=== PATIENT | male | born 1955 | race Caucasian/White ===

== ENCOUNTER 2018-07-19 09:37 | Outpatient (REF) | payer BC, SELFPAY ==
[2018-07-19 13:37] LABS: HCT 49.4 % (40.0-50.0); HGB 17.2 g/dL (13.5-17.5); Mean Corp. HGB Concentration 34.8 g/dL (32.0-36.0); Mean Corpuscular Hemoglobin 30.8 pg (27.0-33.0); Mean Corpuscular Volume 88.5 fL (80-95); Mean Platelet Volume 10.2 fL (8.0-11.0); Platelet Count 275 x1000/uL (130-400); RBC 5.58 m/cumm (4.50-6.00); RBC Distribution Width 15.6 % (11.8-14.1); White Blood Cell Count 8.94 k/cumm (4.4-10.8)
[2018-07-19 13:45] LABS: ALT 21 U/L (12-78); AST 15 U/L (15-37); Albumin 4.2 g/dL (3.4-5.0); Alkaline Phosphatase 60 U/L (46-116); BUN 21 mg/dL (7-18); Bilirubin, Total 0.7 mg/dL (0.2-1.0); CREATININE 0.88 mg/dL (0.70-1.30); Calcium 9.2 mg/dL (8.5-10.1); Chloride 102 mmol/L (98-107); Cholesterol 126 mg/dL (50-200); Glucose 122 mg/dL (70-100); HDL Cholesterol 25 mg/dL (40-60); LDL CHOLESTEROL 80 mg/dL (<100); Potassium 4.7 mmol/L (3.5-5.1); Sodium 139 mmol/L (136-145); Total Protein 7.4 g/dL (6.4-8.2); Triglyceride 130 mg/dL (30-150)
[2018-07-23 09:22] LABS: PSA, Screening 24.1 ng/ml (0-4.5)
== END 2018-07-19 09:57 ==
LOC: NCHCN 09:37
PROVIDERS: PCP Family Medicine; Visit Provider Family Medicine
DX: E78.5 Hyperlipidemia, unspecified (principal); I10 Essential (primary) hypertension; Z00.00 Encounter for general adult medical examination without abnormal findings; Z12.5 Encounter for screening for malignant neoplasm of prostate
CPT/HCPCS: 80053; 80061; 83721; 84153; 85027

== ENCOUNTER 2018-09-07 11:35 | Outpatient (CLI) | payer BC, SELFPAY ==
[2018-09-10 10:02] LABS: PSA, Diagnostic 26.3 ng/ml (0-4.5)
== END 2018-09-07 11:55 ==
PROVIDERS: PCP Family Medicine; Visit Provider Urology
DX: R97.20 Elevated prostate specific antigen [PSA] (principal)
CPT/HCPCS: 36415; 84153

== ENCOUNTER 2018-09-24 02:19 | Outpatient (CLI) | payer BC, SELFPAY ==
--- NOTE | 2018-09-24 12:42 | DI.US_ITS ---
SYMPTOM/DIAGNOSIS: ELEVATED PSA, R97.20, ? CA ULTRASOUND GUIDED PROSTATE BIOPSY: Sonography was utilized by Dr. Thurston during the performance of a trans rectal ultrasound guided prostate biopsy 12 biopsy samples were obtained. Please refer to the procedure report for complete details.
--- NOTE | 2018-09-24 13:10 | PROST_PTH ---
PATIENT: Vinicius Sy LOC: [facility] U#:[id number] AGE/SX: 62/M ROOM: RE09/24/[address]: Tico Thurston MD : [id number] BED: DIS: 09/24/2018 SPEC #: [id number] RECD: 09/24/18 17:56 STATUS: [facility] #: [id number] JOSE: 09/24/18 13:[address]: Tico Thurston DEPT: Surgical Specimen RECD BY: Izabela Franco ENTERED: 09/24/18 17:58 SP TYPE: PROST OTHR DR: Coreen Cardoso Tissues: 1 - PROSTATE NEEDLE BIOPSY 2 - PROSTATE NEEDLE BIOPSY 3 - PROSTATE NEEDLE BIOPSY 4 - PROSTATE NEEDLE BIOPSY 5 - PROSTATE NEEDLE BIOPSY 6 - PROSTATE NEEDLE BIOPSY 7 - PROSTATE NEEDLE BIOPSY 8 - PROSTATE NEEDLE BIOPSY 9 - PROSTATE NEEDLE BIOPSY 10 - PROSTATE NEEDLE BIOPSY 11 - PROSTATE NEEDLE BIOPSY 12 - PROSTATE NEEDLE BIOPSY Procedures: GROSS AND MICRO LEVEL 4 Comments: [id number]
--- NOTE | 2018-09-24 16:52 | ROE_ITS ---
DATE OF PROCEDURE: September 24, 2018 PREPROCEDURE DIAGNOSIS: Elevated PSA. POSTPROCEDURE DIAGNOSIS: Elevated PSA. PROCEDURE: Ultrasound-guided biopsy of the prostate. SURGEON: Tico Thurston M.D. ANESTHESIA: Local. COMPLICATIONS: None. HISTORY: This is a 62-year-old gentleman who was recently discovered as having an elevated PSA of 24 ng/mL. We rechecked the PSA and confirmed that it was elevated. On digital exam we did not find an y discrete prostate nodules. He presents for ultrasound-guided biopsy for tissue diagnosis. OPERATIVE REPORT: The patient was brought to the Operating Room on 09/24/18. He had been given a pre procedure mechanical and antibiotic bowel prep. He was placed in the left lateral position. Transrectal imaging of the prostate was performed. The prostate was imaged in both transverse and lo ngitudinal planes. The prostate volume was calculated at 31 cc. No specific hypoechoic areas were noticed. There was, however, some loss of architecture between the normal peripheral and transition zones. A periprostatic nerve block was performed using 1% Xylocaine without epinephrine. We then took a tot al of 12 laterally-directed prostate biopsies. Each biopsy was labeled and sent to Pathology for per manent section. The patient tolerated this procedure well with no complications. He will follow up in one week to review the biopsy results. cc: Coreen Cardoso M.D.
== END 2018-09-24 02:39 ==
PROVIDERS: PCP Family Medicine; Visit Provider Urology
DX: C61 Malignant neoplasm of prostate (principal); N41.1 Chronic prostatitis; R97.20 Elevated prostate specific antigen [PSA]
CPT/HCPCS: 55700; 76942; 88305

== ENCOUNTER 2018-10-26 01:18 | Outpatient (CLI) | payer BC, SELFPAY ==
--- NOTE | 2018-10-26 08:01 | DI.NM_ITS ---
SYMPTOMS/DIAGNOSIS: PROSTATE CA, C61, ? METS WHOLE BODY BONE SCAN: 25.2 millicuries of Technetium 99 M MDP were administered IV. Whole body images and oblique views of the pelvis were performed. There is mildly increased activity at the L 2 level. This corresponds to an area of degeneration and sclerosis seen on the CT from the previous day. There is mildly increased activity in both wrists and in the right ankle likely secondary to degenerative changes. IMPRESSION: No evidence of metastatic disease.
--- NOTE | 2018-10-26 08:01 | DI.CT_ITS ---
SYMPTOMS/DIAGNOSIS: PROSTATE CA, C61, ? METS CT OF THE ABDOMEN AND PELVIS: There are no prior comparison exams. Images were performed from the lung bases through the ischial tuberosities after IV and oral contrast. The lung bases are clear. The heart size is normal. Coronary artery calcifications are seen. The abdominal aorta shows calcification and mild dilatation inferiorly to 3 cm. There is also mild dilatation of both common iliac arteries. There is a 4 cm cyst at the posterior right lobe of the liver and a smaller cyst seen posteriorly and superiorly near the diaphragm. No suspicious liver lesions are identified. The gallbladder, spleen, pancreas and adrenals are unremarkable. A cyst is seen at the mid left kidney. There is no hydronephrosis. The prostate appears mildly enlarged. No focal mass is visible. The bladder is unremarkable. There are fatty containing bilateral inguinal hernias, left greater than right. The bowel is unremarkable. The appendix appears normal. No free air, free fluid or adenopathy is seen. There are degenerative disc changes greatest at L 1 - 2. There is an area of endplate sclerosis but no definite suspicious lytic or blastic lesion. IMPRESSION: No evidence of metastatic disease. Incidental findings as described above.
[2018-10-26] MEDS: Omnipaque 350 MG/ML 50 ML BTL IJ (08:56)
[2018-10-26] MEDS: Breeza Beverage 473 ML BTL PO ×2 (08:57→08:58)
[2018-10-26 09:00] LABS: CREATININE 0.94 mg/dL (0.70-1.30)
[2018-10-26] MEDS: Omnipaque 350 MG/ML 100 ML BTL IJ (10:59)
== END 2018-10-26 01:38 ==
PROVIDERS: PCP Family Medicine; Visit Provider Urology
DX: C61 Malignant neoplasm of prostate (principal); Z12.89 Encounter for screening for malignant neoplasm of other sites; K76.89 Other specified diseases of liver; K40.90 Unilateral inguinal hernia, without obstruction or gangrene, not specified as recurrent
CPT/HCPCS: 36415; 78306; 74177; 82565; J3490; Q9967

== ENCOUNTER 2019-05-24 09:27 | Outpatient (CLI) | payer BC, SELFPAY ==
[2019-05-24 10:07] LABS: Abs Immature Grans 0.01 k/cumm (0.0-0.09); Absolute Basophil Count 0.02 k/cumm (0.0-0.2); Absolute Eosinophil Count 0.12 k/cumm (0.0-0.7); Absolute Lymphocyte Count 0.75 k/cumm (1.2-3.4); Absolute Monocyte Count 0.52 k/cumm (0.11-0.7); Basophils % 0.4; Eosinophils % 2.4; HCT 42.5 % (40.0-50.0); HGB 14.3 g/dL (13.5-17.5); Immature Grans % 0.2; Lymphocytes % 14.9; Mean Corp. HGB Concentration 33.6 g/dL (32.0-36.0); Mean Corpuscular Hemoglobin 30.7 pg (27.0-33.0); Mean Corpuscular Volume 91.2 fL (80-95); Mean Platelet Volume 9.5 fL (8.0-11.0); Monocytes % 10.4; Neutrophils % 71.7; Platelet Count 244 x1000/uL (130-400); RBC 4.66 m/cumm (4.50-6.00); RBC Distribution Width 14.9 % (11.8-14.1); White Blood Cell Count 5.02 k/cumm (4.4-10.8)
[2019-05-24 10:14] LABS: ALT 14 U/L (16-63); AST 11 U/L (15-37); Albumin 3.9 g/dL (3.4-5.0); Alkaline Phosphatase 67 U/L (46-116); Anion Gap 8.5 mmol/L (3-11); BUN 18 mg/dL (7-18); Bilirubin, Total 0.3 mg/dL (0.2-1.0); CO2 28.5 mmol/L (21.0-32.0); CREATININE 0.91 mg/dL (0.70-1.30); Calcium 9.1 mg/dL (8.5-10.1); Chloride 103 mmol/L (98-107); Glucose 123 mg/dL (70-100); Potassium 4.2 mmol/L (3.5-5.1); Sodium 140 mmol/L (136-145); Total Protein 7.1 g/dL (6.4-8.2)
[2019-05-26 16:05] LABS: Testosterone, Total <7.0 ng/dL (240-950)
[2019-05-27 10:43] LABS: PSA, Diagnostic <0.1 ng/ml (0-4.5)
== END 2019-05-24 09:47 ==
PROVIDERS: PCP Family Medicine; Visit Provider Radiology Radiation Oncology
DX: C61 Malignant neoplasm of prostate (principal)
CPT/HCPCS: 36415; 80053; 84403; 84153; 85025

== ENCOUNTER 2019-07-07 18:44 | Emergency (ER) | payer BC, SELFPAY ==
[2019-07-07] VITALS (15 sets, daily range): BP systolic 123–158; BP diastolic 66–120; PULSE 95–122; RESP 12–29; TEMP 36.6; O2SAT 95–100
--- NOTE | 2019-07-07 18:54 | W.ED.GENAD ---
Discharge Plan Disposition Patient Disposition: HOME Condition: Stable Discharge Details Chief Complaint: GI Bleed Clinical Impression: Proctocolitis Primary Care Provider: Coreen Cardoso ED Provider: Isael Andrews Home Meds and New Rx's Prescriptions: New prednisone 20 mg tablet 60 mg PO DAILY 5 Days Qty: 15 RF: 0 Continued sildenafil [Viagra] 100 mg tablet 100 mg PO DAILY PRN (Reason: sexual activity) Qty: 10 RF: 0 atorvastatin 40 MG tablet 40 mg PO DAILY RF: 0 omeprazole 20 MG capsule,delayed release(DR/EC) 20 mg PO DAILY RF: 0 aspirin 81 MG tablet,chewable 81 mg PO DAILY RF: 0 epinephrine [EpiPen 2-Roberth] 0.3 MG/0.3 ML auto-injector 0.3 mg IM ONCE RF: 0 albuterol sulfate [ProAir HFA] 8.5 GM HFA aerosol inhaler 1 - 2 puff Inhalation Q4H PRN RF: 0 (DME) inhalational spacing device [Aerochamber Plus Flow-Vu] 1 EACH spacer 1 ea Miscellaneous PRN RF: 0 calcium carbonate-vitamin D3 [Calcium 600 + D(3)] 600 mg(1,500mg) -200 unit Tablet 1 tab PO BID RF: 0 aspirin [Aspir-81] 81 mg Tablet,Delayed Release (Dr/Ec) 81 mg PO DAILY RF: 0 acetaminophen [Tylenol Arthritis Pain] 650 mg Tablet Extended Release 650 mg PO Q12H PRNRF: 0 diclofenac potassium 50 mg Tablet 50 mg PO DAILY RF: 0 hydrochlorothiazide 12.5 mg Tablet 12.5 mg PO DAILY RF: 0 Discharge Instructions Additional Instructions: your lab work was normal. Your cat scan showed evidence of inflammation of the prostate and colon likely from the radiation therapy follow up with your primary care provider within a week if you have increased bleeding, pain, fevers or chest pain/shortness of breath return to the emergency department Medical Decision Making 63 yo male with hx of prostate cancer s/p radiation completed in April who comes in with cc of bright red blood per rectum starting 2 hours ago and has no prior history of such. Is noted to have blood on rectal exam. Denies any abdominal pain, chest aba, fevers, vomit. Given his symptoms will obtain lab work and CTA and monitor. Has no abdominal tenderness on exam labs unremarkable and CT shows proctocolitis. He has no rebleeding here and he declins admission for observation which I feel is reasonable as this can usually be managed as an outpatient. ADvised f/u with pcp and return precautions given Differential Diagnosis Differential Diagnosis: diverticulitis, avm, cancer Imaging Data Radiologic Study: Attestation: I personally reviewed and interpreted this imaging study as follows: Imaging: CT Scan Radiologist's impression: 1. Mucosal thickening distal sigmoid and rectum suggesting proctocolitis. 2. Placement of prostatic brachytherapy beads since the comparison study. Lab Data Lab results reviewed: Yes I reviewed the patient's lab results. ECG Data Attestation: I personally reviewed and interpreted this ECG (s) as follows: Prior ECG tracings: not available for review Interpretation: sinus rhythm, rate of 114, pr 164, no acute st t wave ischemic findings HPI General Mode of arrival: ambulatory. Date/Time Provider Initiated Documentation: 07/07/19 18:45. Limitations to Documentation: no limitations. Information obtained by: patient. History of Present Illness 63 year old M presents to the emergency department with the chief complaint of bright red blood per rectum, described as moderate, and it has been constant. No relieving factors improve symptom(s), No exacerbating factors reported . Patient notes no other symptoms.. Related Data Home Medications Medication Instructions Recorded Confirmed albuterol sulfate [ProAir HFA] 1 - 2 puff INHALATION Q4H PRN 05/08/17 07/07/19 inhaler aspirin 81 mg PO DAILY tab-cap 05/08/17 07/07/19 atorvastatin 40 mg PO DAILY tab-cap 05/08/17 07/07/19 epinephrine [EpiPen 2-Roberth] 0.3 mg IM ONCE 05/08/17 07/07/19 inhalational spacing device 05/08/17 [Aerochamber Plus Flow-Vu] omeprazole 20 mg PO DAILY tab-cap 05/08/17 07/07/19 sildenafil 100 mg tablet 100 mg PO DAILY PRN #10 tab 10/26/18 07/07/19 acetaminophen [Tylenol Arthritis 650 mg PO Q12H PRN 07/07/19 07/07/19 Pain] aspirin [Aspir-81] 81 mg PO DAILY 07/07/19 07/07/19 calcium carbonate-vitamin D3 1 tab PO BID 07/07/19 07/07/19 [Calcium 600 + D(3)] diclofenac potassium 50 mg PO DAILY 07/07/19 07/07/19 hydrochlorothiazide 12.5 mg PO DAILY 07/07/19 07/07/19 prednisone 60 mg PO DAILY 5 Days #15 tab 07/07/19 Previous Rx's Medication Instructions Recorded sildenafil 100 mg tablet 100 mg PO DAILY PRN #10 tab 10/26/18 prednisone 60 mg PO DAILY 5 Days #15 tab 07/07/19 Allergies Allergy/AdvReac Type Severity Reaction Status Date / Time bee venom protein (honey bee) Allergy Severe Anaphylaxsi Unverified 09/07/18 10:52 s Penicillins Allergy Unverified 07/07/19 18:53 General Stated Complaint: GI Bleed VESTA: 2 Review of Systems All systems reviewed & are unremarkable except as noted in HPI and below Constitutional Constitutional: Denies chills, Denies fever(s) and Denies weakness ENT Ears, Nose, Mouth, and Throat: Denies change in voice Cardiovascular Cardiovascular: Denies chest pain and Denies dyspnea Respiratory Respiratory: Denies dyspnea Gastrointestinal Gastrointestinal: Denies abdominal pain, Denies nausea and Denies vomiting Musculoskeletal Musculoskeletal: Denies joint swelling Neurologic Neurologic: Denies weakness [facility] Medical History (Updated 09/03/18 @ 15:08 by Ange Villalobos) Alcohol abuse Dyspepsia Erectile dysfunction Exertional shortness of breath HTN (hypertension) Hyperlipidemia Joint pain Plantar wart, right foot Sensorineural hearing loss Tobacco abuse Surgical History (Updated 06/22/17 @ 09:37 by Thania Watson) Colonoscopy - [facility] (06/09/17) Social History Smoking/Tobacco Use Status: Current every day Tobacco Type: pipe and cigars Alcohol Intake: current Alcohol Intake frequency: 3 or more drinks per day Alcohol type: hard liquor Drug use: Never Substance use type: does not use Do you feel safe at home: Yes Do you feel safe in your relationship?: Yes Exam Const General: no acute distress Orientation: alert HENMT Head: normal to inspection Ears: external ears normal General nose exam: external nose normal Mouth: moist mucous membranes Eyes General: appearance normal, both eyes and all related structures Neck Neck: normal visual inspection Resp Effort & Inspection: normal respiratory effort and able to speak in complete sentences Cardio Rate: regular rate GI Palpation: soft Skin General skin exam: no rashes or lesions noted Neuro General: alert and oriented x3 Extrem General: normal to inspection Psych Mental Status: mental status grossly normal Course Vital Signs Vital signs: Vital Signs Temperature 36.6 C 07/07/19 18:49 Pulse 122 H 07/07/19 18:49 Respiratory Rate 25 H 07/07/19 18:49 Blood Pressure 158/87 H 07/07/19 18:49 Pulse Oximetry 97 07/07/19 18:49 Temperature 36.6 C 07/07/19 18:49 Temperature Source Skin 07/07/19 18:49 Pulse 122 H 07/07/19 18:49 Respiratory Rate 25 H 07/07/19 18:49 Blood Pressure 158/87 H 07/07/19 18:49 Blood Pressure Position Supine 07/07/19 18:49 Pulse Oximetry 97 07/07/19 18:49 Oxygen Delivery Method Room Air 07/07/19 18:49 Oxygen Flow Rate 0 07/07/19 18:49
[2019-07-07 19:02] LABS: Abs Immature Grans 0.03 k/cumm (0.0-0.09); Absolute Basophil Count 0.03 k/cumm (0.0-0.2); Absolute Eosinophil Count 0.11 k/cumm (0.0-0.7); Absolute Lymphocyte Count 1.25 k/cumm (1.2-3.4); Absolute Monocyte Count 0.71 k/cumm (0.11-0.7); Basophils % 0.3; HCT 43.9 % (40.0-50.0); HGB 15.1 g/dL (13.5-17.5); Immature Grans % 0.3; Lymphocytes % 11.5; Mean Corp. HGB Concentration 34.4 g/dL (32.0-36.0); Mean Corpuscular Hemoglobin 30.7 pg (27.0-33.0); Mean Corpuscular Volume 89.2 fL (80-95); Mean Platelet Volume 9.3 fL (8.0-11.0); Monocytes % 6.6; Neutrophils % 80.3; Platelet Count 341 x1000/uL (130-400); RBC 4.92 m/cumm (4.50-6.00); RBC Distribution Width 15.2 % (11.8-14.1); White Blood Cell Count 10.83 k/cumm (4.4-10.8)
[2019-07-07] MEDS: Omnipaque 350 MG/ML 100 ML BTL IJ (19:08)
--- NOTE | 2019-07-07 19:13 | DI.CT_ITS ---
EXAM: CT ABDOMEN AND PELVIS CTA CLINICAL HISTORY: lower GI bleed TECHNIQUE: 100 cc Omnipaque 350 during the arterial phase. Axial CT angiography was performed with multislice acquisition and multiplanar and/or 3D reconstructions. COMPARISON: CT ABDOMEN AND PELVIS W from 10/26/2018 FINDINGS: There is no evidence of aortic dissection. There is dilatation of the abdominal aorta up to 3 cm. The proximal iliac arteries also appear dilated, unchanged. The celiac axis, SMA and renal arteries are patent. The AZIZA also appears patent. No active contrast extravasation is seen. There is some wall thi ckening in the rectum and distal sigmoid. This could represent inflammatory changes or could be secon rebecca to radiation therapy. There is no evidence of free air, free fluid or obstruction. The lung base s are clear. A cyst is again noted in the liver. The gallbladder, pancreas, spleen, and adrenals are unremarkable. A left renal cyst is again noted. There is no evidence of hydronephrosis. The bladder i s nearly empty. There is a question of thickening of the bladder wall. There is a small fat-containin g left inguinal hernia. IMPRESSION: Wall thickening of the distal sigmoid and rectum could indicate proctitis versus secondary to radia tion therapy.
[2019-07-07 19:15] LABS: Prothrombin Time 10.3 sec (9.3-11.0)
[2019-07-07 19:17] LABS: ALT 18 U/L (16-63); AST 13 U/L (15-37); Albumin 3.9 g/dL (3.4-5.0); Alkaline Phosphatase 83 U/L (46-116); Anion Gap 11.1 mmol/L (3-11); BUN 24 mg/dL (7-18); Bilirubin, Total 0.2 mg/dL (0.2-1.0); CO2 26.9 mmol/L (21.0-32.0); CREATININE 0.98 mg/dL (0.70-1.30); Calcium 9.2 mg/dL (8.5-10.1); Chloride 105 mmol/L (98-107); Glucose 151 mg/dL (74-106); Lipase 181 U/L (73-393); Potassium 3.8 mmol/L (3.5-5.1); Sodium 143 mmol/L (136-145); Total Protein 7.5 g/dL (6.4-8.2)
--- NOTE | 2019-07-07 19:55 | DI.VRAD_ITS ---
Addendum created by Leonides Vyas MD on 07/07/2019 8:40:08 PM EST This is a duplicate study. The complete CTA study is dictated as a separate report with the complete images. Initial report created on 07/07/2019 7:55:30 PM EST PROCEDURE INFORMATION: Exam: CT Angiography Abdomen and Pelvis With Contrast Exam date and time: 07/07/2019 7:08 PM Age: 63 years old Clinical history: Patient HX: Rectal bleeding this am. HX prostate CA TECHNIQUE: Imaging protocol: Computed tomographic angiography of the abdomen and pelvis with intravenous contrast material. 3D rendering: MIP reconstructed images were created and reviewed. Radiation optimization: All CT scans at this facility use at least one of these dose optimization techniques: automated exposure control; mA and/or kV adjustment per patient size (includes targeted exams where dose is matched to clinical indication); or iterative reconstruction. Contrast material: OMNI 350; Contrast volume: 100 ml; Contrast route: IV; COMPARISON: CT ABDOMEN PELVIS W 10/26/2018 10:40 AM FINDINGS: Aorta: Moderate diffuse atherosclerosis with ectatic infrarenal abdominal aorta measuring up to 3 cm in diameter and diffusely ectatic iliac arteries bilaterally. Celiac trunk and mesenteric arteries: No occlusion or significant stenosis. Renal arteries: No occlusion or significant stenosis. Right iliac arteries: No occlusion or significant stenosis. Left iliac arteries: No occlusion or significant stenosis. Liver: No change 4 cm cyst posterior segment right lobe of the liver and a second smaller 11 mm lesion just above this which is too small to characterize. Small hepatic granuloma. Gallbladder and bile ducts: Nondistended. No evidence of mineralized stones. Pancreas: Unremarkable. No mass. No ductal dilation. Spleen: Unremarkable. No splenomegaly. Adrenals: Unremarkable. No mass. Kidneys and ureters: 17 mm left interpolar renal cyst unchanged. Stomach and bowel: There is rectal and distal sigmoid mucosal thickening and fat stranding is suggesting proctocolitis possibly secondary to radiation. Appendix: Normal appendix. Intraperitoneal space: Unremarkable. No free air. No significant fluid collection. Lymph nodes: Unremarkable. No enlarged lymph nodes. Bladder: Unremarkable. No mass. Reproductive: Prostatic brachytherapy beads. Bones/joints: No acute fracture. No dislocation. Soft tissues: Small left greater than right bilateral fat containing inguinal hernias. IMPRESSION: 1. Mucosal thickening distal sigmoid and rectum suggesting proctocolitis. 2. Placement of prostatic brachytherapy beads since the comparison study. Axial images only were reviewed for this interpretation. Sagittal and coronal images have been requested and will be reviewed and reported upon if they can be obtained. Dictated and Authenticated by: Leonides Vyas MD. Ordering:NIGEL Kirkland MD
[2019-07-07] MEDS: predniSONE 20 MG TAB 60 MG PO (20:22)
== END 2019-07-07 20:15 | disposition home or self-care (01) ==
PROVIDERS: Emergency Provider Emergency Medicine; PCP Family Medicine
DX: K52.0 Gastroenteritis and colitis due to radiation (principal); C61 Malignant neoplasm of prostate; Z92.3 Personal history of irradiation; I10 Essential (primary) hypertension
CPT/HCPCS: 36415; 80053; 83690; 86850; 86900; 86901; 93005; 99285; 74174; 83735; 85025; 85610; 85730; 93010; 99284; J3490; J7512

== ENCOUNTER 2020-03-05 01:00 | Outpatient (CLI) | payer MEDICARE, SELFPAY ==
[2020-03-05 09:56] LABS: Abs Immature Grans 0.02 k/cumm (0.0-0.09); Absolute Basophil Count 0.02 k/cumm (0.0-0.2); Absolute Lymphocyte Count 1.06 k/cumm (1.2-3.4); Absolute Monocyte Count 0.64 k/cumm (0.11-0.7); Absolute Neutrophil Count 3.93 k/cumm (1.2-6.7); Basophils % 0.3; Eosinophils % 1.7; HCT 46.8 % (40.0-50.0); HGB 15.6 g/dL (13.5-17.5); Immature Grans % 0.3 %; Lymphocytes % 18.4; Mean Corp. HGB Concentration 33.3 g/dL (32.0-36.0); Mean Corpuscular Hemoglobin 30.2 pg (27.0-33.0); Mean Corpuscular Volume 90.7 fL (80-95); Monocytes % 11.1; Neutrophils % 68.2; Platelet Count 286 x1000/uL (130-400); RBC 5.16 m/cumm (4.50-6.00); RBC Distribution Width 16.2 % (11.8-14.1); White Blood Cell Count 5.77 k/cumm (4.4-10.8)
[2020-03-05 10:43] LABS: ALT 18 U/L (16-63); AST 12 U/L (15-37); Albumin 3.8 g/dL (3.4-5.0); Alkaline Phosphatase 68 U/L (46-116); Anion Gap 6.9 mmol/L (3-11); BUN 16 mg/dL (7-18); Bilirubin, Total 0.5 mg/dL (0.2-1.0); CO2 31.1 mmol/L (21.0-32.0); Calcium 9.1 mg/dL (8.5-10.1); Chloride 103 mmol/L (98-107); Glucose 109 mg/dL (74-106); Potassium 4.4 mmol/L (3.5-5.1); Sodium 141 mmol/L (136-145); Total Protein 6.8 g/dL (6.4-8.2)
[2020-03-06 12:49] LABS: PSA, Ultrasensitive 0.03 ng/mL (<= 4.5)
[2020-03-09 16:35] LABS: Testosterone, Total 317 ng/dL (240-950)
== END 2020-03-05 01:20 ==
PROVIDERS: PCP Family Medicine; Visit Provider Radiology Radiation Oncology
DX: C61 Malignant neoplasm of prostate (principal)
CPT/HCPCS: 36415; 80053; 84153; 84403; 85025

== ENCOUNTER 2020-07-16 03:15 | Outpatient (CLI) | payer MEDICARE, SELFPAY ==
[2020-07-16 09:49] LABS: Abs Immature Grans 0.03 10^3/uL (0.0-0.06); Absolute Basophil Count 0.04 10^3/uL (0.0-0.2); Absolute Eosinophil Count 0.11 10^3/uL (0.0-0.7); Absolute Monocyte Count 0.68 10^3/uL (0.1-0.8); Basophils % 0.5; Eosinophils % 1.3; HCT 53.3 % (40.0-50.0); HGB 17.7 g/dL (13.5-17.5); Immature Grans % 0.4; Lymphocytes % 15.6; MCH 30.1 pg (27.0-33.0); MCHC 33.2 % (32.0-36.0); MCV 90.6 fL (80-95); MPV 9.4 fL (8.0-11.0); Monocytes % 8.1; Neutrophils % 74.1; Nucleated RBC 0 %; Platelet Count 285 10^3/uL (130-400); RBC 5.88 10^6/uL (4.36-5.78); RDW 14.8 % (11.8-14.1); RDW-SD 49.3 fL; WBC 8.36 10^3/uL (4.4-10.8)
[2020-07-16 10:01] LABS: ALT 20 U/L (16-63); AST 14 U/L (15-37); Albumin 4.1 g/dL (3.4-5.0); Alkaline Phosphatase 77 U/L (46-116); Anion Gap 6.6 mmol/L (3-11); BUN 21 mg/dL (7-18); Bilirubin, Total 0.4 mg/dL (0.2-1.0); CO2 30.4 mmol/L (21.0-32.0); CREATININE 1.11 mg/dL (0.70-1.30); Calcium 9.2 mg/dL (8.5-10.1); Chloride 99 mmol/L (98-107); Glucose 132 mg/dL (74-106); Potassium 4.1 mmol/L (3.5-5.1); Sodium 136 mmol/L (136-145); Total Protein 7.9 g/dL (6.4-8.2)
[2020-07-17 15:29] LABS: PSA, Ultrasensitive 0.07 ng/mL (<= 4.5)
[2020-07-19 15:53] LABS: Testosterone, Total 472 ng/dL (240-950)
== END 2020-07-16 03:35 ==
PROVIDERS: PCP Family Medicine; Visit Provider Nurse Practitioner Family
DX: C61 Malignant neoplasm of prostate (principal)
CPT/HCPCS: 36415; 80053; 84153; 84403; 85025

== ENCOUNTER 2021-02-18 09:26 | Outpatient (REF) | payer MEDICARE, SELFPAY ==
[2021-02-18 13:15] LABS: MCH 30.2 pg (27.0-33.0); MCHC 33.3 % (32.0-36.0); MCV 90.7 fL (80-95); MPV 10.1 fL (8.0-11.0); Platelet Count 255 10^3/uL (130-400); RBC 5.62 10^6/uL (4.36-5.78); RDW 14.9 % (11.8-14.1); RDW-SD 49.9 fL; WBC 7.47 10^3/uL (4.4-10.8)
[2021-02-18 14:09] LABS: ALT 20 U/L (16-63); AST 10 U/L (15-37); Albumin 3.7 g/dL (3.4-5.0); Alkaline Phosphatase 69 U/L (46-116); Anion Gap 9.3 mmol/L (3-11); BUN 19 mg/dL (7-18); Bilirubin, Total 0.5 mg/dL (0.2-1.0); CO2 28.7 mmol/L (21.0-32.0); CREATININE 0.9 mg/dL (0.70-1.30); Calculated LDL 63 mg/dL (<100); Chloride 104 mmol/L (98-107); Cholesterol 122 mg/dL (<200); Glucose 121 mg/dL (74-106); HDL Cholesterol 22 mg/dL (40-60); Potassium 4.1 mmol/L (3.5-5.1); Sodium 142 mmol/L (136-145); Total Protein 6.8 g/dL (6.4-8.2); Triglyceride 187 mg/dL (<150)
[2021-02-18 21:59] LABS: PSA, Diagnostic <0.1 ng/mL (0.0-4.5)
== END 2021-02-18 09:27 | disposition home or self-care (01) ==
LOC: NCHCN 09:26
PROVIDERS: PCP Family Medicine; Visit Provider Family Medicine
DX: Z00.00 Encounter for general adult medical examination without abnormal findings; C61 Malignant neoplasm of prostate; E78.5 Hyperlipidemia, unspecified; I10 Essential (primary) hypertension
CPT/HCPCS: 80053; 80061; 85027; 84153

== ENCOUNTER → 2021-02-26 12:36 | Outpatient (BNVA) | payer MEDICARE, SELFPAY | PROVIDERS: PCP Family Medicine; Referring Provider Family Medicine; Visit Provider Physical Therapy Assistant | DX: L72.3 Sebaceous cyst (principal); L98.8 Other specified disorders of the skin and subcutaneous tissue; I10 Essential (primary) hypertension | CPT/HCPCS: 99214 ==

== ENCOUNTER → 2021-03-05 08:16 | Outpatient (BNVA) | payer MEDICARE, SELFPAY | PROVIDERS: PCP Family Medicine; Referring Provider Family Medicine; Visit Provider Physical Therapy Assistant | DX: L53.8 Other specified erythematous conditions (principal); L98.8 Other specified disorders of the skin and subcutaneous tissue | CPT/HCPCS: 99213 ==

== ENCOUNTER 2022-03-16 15:54 | Outpatient (REF) | payer MEDICARE, SELFPAY ==
[2022-03-16 15:01] LABS: Abs Immature Grans 0.02 10^3/uL (0.0-0.06); Absolute Basophil Count 0.05 10^3/uL (0.0-0.2); Absolute Eosinophil Count 0.08 10^3/uL (0.0-0.7); Absolute Lymphocyte Count 1.38 10^3/uL (1.2-3.4); Absolute Monocyte Count 0.54 10^3/uL (0.1-0.8); Absolute Neutrophil Count 4.61 10^3/uL (1.2-6.7); Basophils % 0.7; Eosinophils % 1.2; HCT 49.9 % (40.0-50.0); HGB 16.6 g/dL (13.5-17.5); Immature Grans % 0.3; Lymphocytes % 20.7; MCH 30.6 pg (27.0-33.0); MCHC 33.3 % (32.0-36.0); MCV 92 fL (80-95); Monocytes % 8.1; Platelet Count 299 10^3/uL (130-400); RBC 5.42 10^6/uL (4.36-5.78); RDW 15.3 % (11.8-14.1); RDW-SD 52.1 fL; WBC 6.68 10^3/uL (4.4-10.8)
[2022-03-16 15:25] LABS: ALT 25 U/L (16-63); AST 23 U/L (15-37); Alkaline Phosphatase 54 U/L (46-116); Anion Gap 9.3 mmol/L (3-11); BUN 17 mg/dL (7-18); Bilirubin, Total 0.4 mg/dL (0.2-1.0); CO2 27.7 mmol/L (21.0-32.0); CREATININE 0.8 mg/dL (0.70-1.30); Calcium 9.2 mg/dL (8.5-10.1); Calculated LDL 91 mg/dL (<100); Chloride 105 mmol/L (98-107); Cholesterol 173 mg/dL (<200); Glucose 100 mg/dL (74-106); HDL Cholesterol 27 mg/dL (40-60); Potassium 4.7 mmol/L (3.5-5.1); Sodium 142 mmol/L (136-145); Triglyceride 275 mg/dL (<150)
[2022-03-16 22:25] LABS: PSA, Diagnostic <0.1 ng/mL (<=4.5)
[2022-03-17 05:47] LABS: Vitamin D 25 Total 31.7 ng/mL (30-100)
== END 2022-03-16 15:55 | disposition home or self-care (01) ==
LOC: NCHCN 15:54
PROVIDERS: PCP Family Medicine; Visit Provider Family Medicine
DX: E78.5 Hyperlipidemia, unspecified (principal); K30 Functional dyspepsia; I10 Essential (primary) hypertension; C61 Malignant neoplasm of prostate; K76.9 Liver disease, unspecified
CPT/HCPCS: 80053; 80061; 82306; 84153; 85025

== ENCOUNTER 2022-10-27 12:48 | Outpatient (CLI) | payer MEDICARE, SELFPAY ==
--- NOTE | 2022-10-27 | DI.RAD_ITS ---
Exam(s) XR HIP LT COMPLETE AP PELVIS EXAM: XR HIP LT COMPLETE AP PELVIS INDICATION: LEFT HIP JOINT PAIN M25.552 HX FALL Z91.81. COMPARISON: CT CT ABDOMEN PELVIS CTA from 07/07/2019 TECHNIQUE: 2D digital imaging was performed. Three views. FINDINGS: Hip joint spaces are maintained. Mild acetabular spurring bilaterally. SI joints and pubic symphysi s unremarkable. Radiotherapy seeds noted in prostate. IMPRESSION: Mild degenerative changes. DATA REPOSITORY: RADIATION DOSE DELIVERED:
== END 2022-10-27 13:08 ==
LOC: DI 12:51
PROVIDERS: PCP Family Medicine; Visit Provider Family Medicine
DX: M25.552 Pain in left hip (principal); Z91.81 History of falling; M16.12 Unilateral primary osteoarthritis, left hip
CPT/HCPCS: 73502

== ENCOUNTER → 2023-06-29 08:37 | Outpatient (BNVA) | payer MEDICARE, SELFPAY | PROVIDERS: PCP Family Medicine; Referring Provider Family Medicine; Visit Provider Physical Therapy Assistant | DX: Z12.11 Encounter for screening for malignant neoplasm of colon (principal); Z86.010 Personal history of colon polyps ==

== ENCOUNTER 2023-07-14 10:00 | Day surgery (SDC) | payer MEDICARE, SELFPAY ==
--- NOTE | 2023-07-13 18:16 | W.COLOREPORT ---
Date of service: 07/14/23 Time of Service: 12:10 Colonoscopy Report Date of procedure: 07/14/23 Pre-op diagnosis general: adenomas polyps Post-op diagnosis procedure note: same Surgeon: Mary Kowalski Anesthesia Type: General LMA/ETT Estimated blood loss (mL): 1 Pathology: other Complications: None Disposition: same day Prep: Miralax/Dulcolax Retraction Time: 16 Procedure Description: After informed consent was obtained the patient was taken to the procedure room and placed in a left decubitous position. Monitors were applied and a time out was done. The patients name, date of , procedure, allergies to medications and metal in their body was reviewed. The patient was then sedated. Once sedated and comfortable a rectal exam was done. External exam was normal. Internal exam revealed a normal sphincter tone and no palpable masses. The prostate without masses. The scope was then introduced and retrofelexed. No internal hemorrhoids were identified. The scope was then advanced to the cecum without difficulty. The TI and appendiceal orifice were identified. The prep was BBPS 3 in all segments for a total of 9. The scope was then slowly retracted over 16 minutes back into the rectum. He has a flat .5cm polyp in the rectum that is removed w/ a cold biopsy forceps. All specimen is retrieved and no bleeding is known. The scope was removed and the patient was woken up and taken back to Same day surgery in stable condition. The patient tolerated the procedure well and there were no immediate complications. Follow up: The patient should follow up in 5-7 years unless they develop changes in bowel habits or other new gastrointestinal complaints.
--- NOTE | 2023-07-13 18:18 | PDOC.DSDIS_ITS ---
Date of service: 07/14/23 Time of Service: 13:00 Discharge Plan Disposition Patient Disposition: Home Condition: Good Discharge Details Reason For Visit: colon can screening Attending Provider: Mary Kowalski Primary Care Provider: Coreen Cardoso Home Meds and New Rx's Prescriptions: Continued cholecalciferol (vitamin D3) 50 mcg (2,000 unit) capsule 50 mcg PO BID atorvastatin 40 MG tablet 40 mg PO DAILY omeprazole 20 MG capsule,delayed release(DR/EC) 20 mg PO DAILY epinephrine [EpiPen 2-Roberth] 0.3 MG/0.3 ML auto-injector 0.3 mg IM ONCE albuterol sulfate [ProAir HFA] 8.5 GM HFA aerosol inhaler 1 - 2 puff Inhalation Q4H PRN (DME) Aerochamber Plus Flow-Vu 1 EACH spacer 1 ea Miscellaneous PRN diclofenac potassium 50 mg Tablet 50 mg PO DAILY hydrochlorothiazide 12.5 mg tablet 25 mg PO DAILY Discontinued bisacodyl [Dulcolax (bisacodyl)] 5 mg tablet,delayed release (DR/EC) 5 mg PO ONCE Qty: 4 0RF polyethylene glycol 3350 17 gram/dose powder 17 g PO DAILY Qty: 238 0RF Discharge Instructions Additional Instructions: DSU Colonoscopy Post- Op Instructions Instructions for Everyone who is given Anesthesia: For your safety, please do the following for the next twenty-four (24) hours: *Do Not operate a motor vehicle (car, truck, motorcycle, etc.) *Do Not drink alcoholic beverages or use any recreational drugs for the first 24 hours or while taking pain medications. The medications in your body may have a reaction that can be dangerous. *Do Not make any important decisions or sign any important papers. Findings: x1 polyp Follow up: My office will send a letter in 2 to 3 weeks time with the pathology results and when we want you to repeat the colonoscopy. 1. No lifting over 20 pounds or strenuous activity for the first 24 hours after your procedure. After 24 hours there are no restrictions on your activity but you may feel fatigued for a few days. 2. After you arrive home you may have a light meal and return to your normal diet as you can tolerate it without feeling sick to your stomach. 3. You may have a bloated, gaseous feeling in your belly (abdomen) after a colonoscopy. Passing gas and belching will help. Walking or lying down on your left side with your knees flexed may relieve the discomfort. Call the office at [phone] (Office) or [phone] (Hospital) right away if you notice any of the following: a.Vomiting of blood or ?coffee ground stools?. b.Rectal bleeding 1Tbsp, blood clots or continuous bleeding. c.Severe belly (abdominal) pain. d.A hard distended belly (abdomen) and an inability to pass gas. 4. Please don?t expect to have a normal BM (bowel movement) for 2-3 days after your procedure. 5. If there are questions regarding the findings of your procedure, please contact your doctor 6. If you are unable to contact your doctor with a problem, contact the hospital at [phone]. 7. Continue all your regular medications unless directed otherwise. I understand the above instructions and have no questions. Signature of Patient or Adult Escort Name of Responsible Adult Escort Signature of Nurse Date/Time Stand Alone Forms: Anesthesia Discharge Inst.Oscar (DSU) Activity:: see above Diet:: see above Discharge Orders Discharge Orders: Discharge Order (Routine); Ordered 07/14/23 Ordered By: Mary Kowalski Discharge Data Discharge Date/Time-TO BE ENTERED AT DEPARTURE: 07/14/23 13:12 DS: Diagnosis Discharge Diagnosis (1) Prostate cancer: Status: Chronic (2) Tubular adenoma of colon: Status: Acute Asessment and Plan: The patient is seen and examined after their colonoscopy.? The patient has been able to pass gas.? They are not having abdominal pain.? They have been able to tolerate liquids and a snack.? They do not have any nausea or vomiting.? They are not having any chest pain or shortness of breath.??? They are not having any rectal bleeding. Their vital signs have been stable-see nursing notes. We discussed findings during their colonoscopy, and any biopsies that were done/polyps that were removed. The patient will be sent a letter with any biopsy results, and when to repeat the colonoscopy.-see discharge instructions. Patient was given explicit instructions to follow-up regarding colonoscopy-refer to discharge instructions.? We reviewed resumption of medications. Patient verbalized understanding and discharged in stable and satisfactory co ndition- See nursing notes. (3) HTN (hypertension): (4) Tobacco abuse: (5) Hyperlipidemia: (6) Dyspepsia: (7) Alcohol abuse:
[2023-07-14 10:00] VITALS: BP 148/90; PULSE 103; RESP 20; TEMP 36.3; O2SAT 98
[2023-07-14] MEDS: Lactated Ringers 1,000 ML 80 ML IV (10:42)
--- NOTE | 2023-07-14 10:55 | ANES.PREOP_ITS ---
General Info Date of Service Date Performed: 07/14/23 Height: 6 ft 1.5 in Weight: 90.1 kg Body Mass Index (BMI): 25.8 Surgical Procedure: Operation Date: 07/14/23 11:20 Proposed Procedure Side Surgeon christiano Kowalski, DO Meds Allergies and Home Medications Allergies Allergy/AdvReac Type Severity Reaction Status Date / Time bee venom protein (honey bee) Allergy Severe Anaphylaxsi Verified 07/14/23 10:27 s Home Medication Medication Instructions Recorded albuterol sulfate 90 mcg/actuation 1 - 2 puff inhalation Q4H PRN 05/08/17 aerosol inhaler (ProAir HFA) atorvastatin 40 mg tablet 40 mg PO DAILY 05/08/17 epinephrine 0.3 mg/0.3 mL 0.3 mg IM ONCE 05/08/17 injection, auto-injector (EpiPen 2-Roberth) inhalational spacing device 05/08/17 (Aerochamber Plus Flow-Vu) omeprazole 20 mg capsule,delayed 20 mg PO DAILY 05/08/17 release diclofenac potassium 50 mg tablet 50 mg PO DAILY 07/07/19 hydrochlorothiazide 12.5 mg tablet 25 mg PO DAILY 03/05/21 cholecalciferol (vitamin D3) 50 50 mcg PO BID 02/23/23 mcg (2,000 unit) capsule Current Visit Medications: Current Medications Generic Name Dose Route Start Last Admin Trade Name Freq PRN Reason Stop Dose Admin Hyoscyamine Sulfate 0.125 mg 07/14/23 10:33 Hyoscyamine 0.125 Mg Sl/Oral/Chew SL 08/13/23 10:32 DIRECTED PRN Ringer's Solution 1,000 mls @ 80 mls/hr 07/14/23 06:00 07/14/23 10:42 IV 08/12/23 23:59 80 mls/hr INFUSION PIETER Administration IV Miscellaneous Supplies 1 each 07/14/23 06:00 Iv Access IV 08/12/23 23:59 DIRECTED PIETER Ondansetron HCl 4 mg 07/14/23 10:33 Ondansetron 4 Mg/2 Ml Vial IVP 08/13/23 10:32 Q4H PRN PRN Nausea / Vomiting Sodium Chloride 0 ml 07/14/23 06:00 Normal Saline Flush 10 Ml Syr IV 08/12/23 23:59 PRN PRN Sodium Chloride 0 ml 07/14/23 06:00 Normal Saline 10 Ml Vial IJ 08/12/23 23:59 DIRECTED PRN Sterile Water 0 ml 07/14/23 06:00 Water,Injection,Sterile 10 Ml Vial IJ 08/12/23 23:59 DIRECTED PRN PFSH Active Problems Active Problems: Problem Status Onset Code Impacted cerumen of right ear H61.21 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 Prostate cancer C61 Tubular adenoma of colon 06/09/17 D12.6 Sebaceous cyst of axilla L72.3 Medical History Medical History Back pain HTN (hypertension) Sensorineural hearing loss Plantar wart, right foot Tobacco abuse Hyperlipidemia Dyspepsia Exertional shortness of breath Erectile dysfunction Alcohol abuse Joint pain Surgical History Surgical History Colonoscopy - MAC (06/09/17) Tobacco Smoking/Tobacco Use Status: Current every day Tobacco Type: pipe and cigars Per week: 25 Alcohol Alcohol Intake: current Alcohol intake frequency: 3 or more drinks per day Alcohol type: hard liquor Substance Use Substance use: Never Substance use type: does not use Vital Signs and Lab Results Vital Signs Most Recent Vital Signs in EMR: Most Recent Vital Signs Temp Pulse Resp BP Pulse Ox 36.3 C L 103 H 20 148/90 H 98 07/14/23 10:00 07/14/23 10:00 07/14/23 10:00 07/14/23 10:00 07/14/23 10:00 Lab Results Blood Type / Crossmatch: No Data to Display Complete Blood Count: No Data to Display Complete Metabolic Panel: No Data to Display Liver Function Panel: No Data to Display Coagulation Panel: No Data to Display Cardiac Panel: No Data to Display Arterial Blood Gas: No Data to Display Venous Blood Gas: No Data to Display Pancreas Panel: No Data to Display Thyroid Panel: No Data to Display Infectious Disease: 2 No Data to Display Blood Cultures: No Data to Display Toxicology Panel: No Data to Display Anesthesia Assessment and Plan Anesthesia History Personal History: No History of Anesthesia Complications Family History: No Family History of Anesthesia Complications Exercise Tolerance Exercise Tolerance: Metabolic Equivalents>4 Pertinent Negatives Pertinent Negatives: No Symptoms of GERD, No Major Cardiovascular Symptoms or Complaints, No Major Pulmonary Symptoms or Complaints and No History of CVA/TIA Cardiac & Pulmonary Exam Cardiac Exam: Normal S1/S2 Heart Sounds Pulmonary Exam: Clear Bilateral Breath Sounds Cardiac and Pulmonary Comment:: Very rare inhaler use Implantable Cardiac Device Does patient have a Pacemaker or an ICD?: No Airway Exam Known Difficult Airway: No Mallampati Class: 2 Mouth Opening: Normal (> 3cm) Thyromental Distance: Less than 3 cm Neck Range of Motion: Full ROM Neck Circumference: Normal Teeth Condition: Edentulous ASA Classification ASA Score: ASA 2 Emergency Case?: No NPO Status NPO Status: NPO Clears >2 hours, Solids >8 hours Anesthesia Plan Resuscitation Status: Full Code Anesthesia Technique: General Anesthesia Airway Planned: Natural Airway Monitors Used: Standard Monitors
[2023-07-14 11:00] VITALS: BMI 25.8
--- NOTE | 2023-07-14 11:55 | BOWEL_PTH ---
PATIENT: Vinicius Sy LOC: [facility] U#:[id number] AGE/SX: 67/M ROOM: RE07/14/[address]: Mary Kowalski : 1955 BED: DIS: 07/14/2023 SPEC #: [id number] RECD: 07/14/23 13:16 STATUS: MAYKEL REQ #: [id number] JOSE: 07/14/23 11:[address]: Mary Kowalski DEPT: Surgical Specimen RECD BY: Izabela Franco ENTERED: 07/14/23 13:16 SP TYPE: Bowel OTHR DR: Coreen Cardoso Tissues: 1 - BIOPSY BOWEL Procedures: GROSS AND MICRO LEVEL 4 Comments: [id number]
[2023-07-14 12:02] VITALS: BP 115/68; PULSE 80; RESP 16; TEMP 36.7; O2SAT 98
--- NOTE | 2023-07-14 12:19 | W.ANESPOSTOP ---
Postoperative Evaluation Date, Time and Location Date Performed: 07/14/23 Time Performed: 12:19 Patient Location: Day Surgery Unit Vital Signs Most Recent Imported Vital Signs: Most Recent Vital Signs Temp Pulse Resp BP Pulse Ox 36.7 C 80 16 115/68 98 07/14/23 12:02 07/14/23 12:02 07/14/23 12:02 07/14/23 12:02 07/14/23 12:02 Pain Score Most Recent Pain Score: Most Recent Pain Score Pain Level 0 07/14/23 12:02 Assessment Mental Status: Awake (Alert & Oriented to Patient Baseline) Airway and Respiratory Function: Patent airway with normal (patient baseline) respiratory exam Cardiovascular Function: Hemodynamically Stable Hydration Status: Adequately Hydrated Nausea & Vomiting: No Nausea or Vomiting Pain: Pt. Denies Any Pain Peripheral Nerve Block: Patient did not receive a nerve block
[2023-07-14 12:30] VITALS: BP 118/79; PULSE 82; RESP 16; TEMP 36.7; O2SAT 96
== END 2023-07-14 13:12 | disposition home or self-care (01) ==
LOC: SUR 10:00
PROVIDERS: PCP Family Medicine; Visit Provider Surgery
PROC: 0DJD8ZZ Inspection of Lower Intestinal Tract, Via Natural or Artificial Opening Endoscopic (ICD-10-PCS; CPT 45378; principal; 2023-07-14 11:15)
DX: Z12.11 Encounter for screening for malignant neoplasm of colon (principal); Z86.010 Personal history of colon polyps; K63.5 Polyp of colon; I10 Essential (primary) hypertension; Z72.0 Tobacco use; F10.10 Alcohol abuse, uncomplicated
CPT/HCPCS: 45380; 88305